=== PATIENT | male | born 1980 | race Caucasian/White ===

== ENCOUNTER 2024-11-15 07:06 | Day surgery (SDC) | payer BC ==
[2024-11-15] MEDS: Lactated Ringers 1,000 ML IV SCH (07:23)
[2024-11-15] MEDS ORDERED: Midazolam 1 MG/ML 2 ML SDV ONE (07:38)
[2024-11-15] MEDS ORDERED: fentaNYL 50 MCG/ML SDV ONE (07:38)
[2024-11-15] MEDS ORDERED: Propofol 200 MG/20 ML SDV ONE (07:38)
== END 2024-11-15 09:40 | disposition home or self-care (01) ==
LOC: JP.SDS 07:06
PROVIDERS: ATTEND Family Medicine
DX: D12.3 Benign neoplasm of transverse colon (principal); K62.1 Rectal polyp; R14.0 Abdominal distension (gaseous); R19.7 Diarrhea, unspecified
CPT/HCPCS: 00811; 45380; J2250; J2704; J3010; J7120